=== PATIENT | female | born 1990 | race Caucasian/White ===

== ENCOUNTER 2023-04-04 19:35 | Emergency (ER) | payer OTHER ==
[~2023-04-04] VITALS: Ht 162.6 cm; Wt 88.5 kg
[2023-04-04 20:22] VITALS: BP 125/85; PULSE 91; RESP 18; TEMP 98.4; O2SAT 97
[2023-04-04 21:20] LABS: CLARITY URINE CLEAR (CLEAR); COLOR URINE YELLOW (YELLOW); GLUCOSE URINE NEGATIVE (NEGATIVE); KETONES URINE NEGATIVE (NEGATIVE); LEUKOCYTE ESTERASE URINE TRACE (NEGATIVE); NITRITE URINE NEGATIVE (NEGATIVE); OCCULT BLOOD URINE NEGATIVE (NEGATIVE); PH URINE 6.5 (4.5-8.0); PROTEIN URINE NEGATIVE (NEGATIVE); SPECIFIC GRAVITY URINE 1.011 (1.005-1.030); UROBILINOGEN URINE 0.2 E.U./dL (0.2-1.0)
[2023-04-04 21:28] LABS: RBC URINE 0-2 /hpf (0-2)
[2023-04-04 21:30] LABS: BACTERIA URINE 3+; SQUAMOUS EPITHELIAL CELL URINE 1+ /lpf (RARE/1+)
[2023-04-04] MEDS ORDERED: DOXY-456 MT (21:45)
[2023-04-04] MEDS ORDERED: CEFTRIAXONE SODIUM 500 MG/VIAL IM ONE (21:45)
[2023-04-04] MEDS ORDERED: DOXYCYCLINE HYCLATE 100MG CAPSULE PO ONE (21:45)
== END 2023-04-04 23:26 | disposition home or self-care (01) ==
LOC: ER 19:35
DX: Z11.3 Encounter for screening for infections with a predominantly sexual mode of transmission (principal); Z88.0 Allergy status to penicillin
CPT/HCPCS: 99283; 81003; 81025; 96372; J0696

== ENCOUNTER 2023-04-21 16:42 | Emergency (ER) | payer OTHER ==
[~2023-04-21 16:42] MED LIST: DOXY-456 MT
[2023-04-21 16:55] VITALS: PULSE 90; RESP 16
== END 2023-04-21 18:37 | disposition left against medical advice (07) ==
LOC: ER 16:42
DX: Z53.21 Procedure and treatment not carried out due to patient leaving prior to being seen by health care provider (principal)
CPT/HCPCS: 99281